=== PATIENT | male | born 1955 | race Caucasian/White ===

== ENCOUNTER 2022-05-23 11:09 | Outpatient (CLI) | payer MEDICARE, SELFPAY ==
--- NOTE | ~2022-05-23 | XR_ITS ---
EXAMINATION: XR shoulder RT min 2V DATE: 05/23/2022 11:40 INDICATION: Right shoulder pain. TECHNIQUE: 4 views of right shoulder were obtained. COMPARISON: None. FINDINGS: Bone alignment is normal. No fracture. There is mild osteoarthritis of glenohumeral joint a nd severe osteoarthritis of acromioclavicular joint. IMPRESSION: 1. Polyarticular osteoarthritis. Reviewed, dictated and finalized at location A.
--- NOTE | ~2022-05-23 | XR_ITS ---
EXAMINATION: XR shoulder LT min 2V DATE: 05/23/2022 11:42 INDICATION: Left shoulder pain. TECHNIQUE: 4 views of left shoulder were obtained. COMPARISON: None. FINDINGS: Bone alignment is normal. No fracture. There is mild osteoarthritis of glenohumeral joint a nd moderate osteoarthritis of acromioclavicular joint. There are suture anchors in scapula. IMPRESSION: 1. Polyarticular osteoarthritis. Reviewed, dictated and finalized at location A.
== END 2022-05-23 11:10 | disposition home or self-care (01) ==
LOC: CHSIMG 11:21
PROVIDERS: PCP Family Medicine; Visit Provider Family Medicine
DX: M25.512 Pain in left shoulder (principal); M25.511 Pain in right shoulder
CPT/HCPCS: 73030

== ENCOUNTER 2022-10-10 11:54 | Outpatient (CLI) | payer MEDICARE, SELFPAY ==
--- NOTE | ~2022-10-10 | US_ITS ---
Renal-Bladder ultrasound Clinical History: Pain Technique: Real-time sonographic imaging of the kidneys and urinary bladder was performed. Findings: The right kidney measures 12.9 cm in length and the left kidney measures 11.3 cm. There is no hydronephrosis or renal calculus identified. Renal cortical echogenicity is within normal limits. No solid renal mass lesion is identified. The urinary bladder is moderately distended at the time of this exam. No intraluminal echoes are iden tified. No abnormal wall thickening is seen. Impression: Unremarkable ultrasound of the kidneys and urinary bladder. Reviewed, dictated and finalized at location M. RVISORY CIVIL ENGINEER Impression: Unremarkable ultrasound of the kidneys and urinary bladder.
--- NOTE | ~2022-10-10 | US_ITS ---
Pelvic ultrasound. Clinical History: Pelvic pain Technique: Realtime transabdominal scanning of the pelvis was performed. Findings: Prostate gland is enlarged, with a volume of 41 mL. Urinary bladder is unremarkable. No abn ormal mass lesion seen. No free fluid identified. Impression: Enlarged prostate gland. No sonographic correlate identified at the area of pain at the right lower quadrant. Reviewed, dictated and finalized at [facility]. FURNACE OPERATOR Impression: Enlarged prostate gland. No sonographic correlate identified at the area of pain at the right lower quad rant.
== END 2022-10-10 11:55 | disposition home or self-care (01) ==
LOC: CHSIMG 11:56
PROVIDERS: PCP Family Medicine; Visit Provider Family Medicine
DX: R10.31 Right lower quadrant pain (principal); N40.0 Benign prostatic hyperplasia without lower urinary tract symptoms
CPT/HCPCS: 76775; 76856

== ENCOUNTER 2024-04-21 11:08 | Outpatient (CLI) | payer MEDICARE, SELFPAY | END 2024-04-21 11:09 | disposition home or self-care (01) | LOC: CHSIMG 11:10 | PROVIDERS: PCP Family Medicine; Visit Provider Family Medicine | DX: M25.561 Pain in right knee (principal) | CPT/HCPCS: 73562 ==